=== PATIENT | female | born 1960 | race Caucasian/White ===

== ENCOUNTER 2024-09-11 18:40 | Emergency (ER) | payer OTHER ==
[2024-09-11 19:06] VITALS: BP 163/65; PULSE 99; RESP 20; TEMP 98; BMI 25.8
[2024-09-11] MEDS ORDERED: DIPHTH,PERTUSS(ACELL),TET 0.5 ML DISP.SYRIN IM ONE (20:26)
[2024-09-11] MEDS: DIPHTH,PERTUSS(ACELL),TET 0.5 ML DISP.SYRIN IM ONE (20:50)
[2024-09-11] MEDS ORDERED: ACETAMINOPHEN 325 MG TABLET (FP) ONE (21:10)
[2024-09-11 21:12] LABS: ABSOLUTE IMMATURE GRANULOCYTES 0.05 x10^3/uL (0.0-0.031); BASOPHILS # 0.03 x10^3/uL (0.01-0.08); EOSINOPHIL % 0.3 % (0.7-5.8); EOSINOPHILS # 0.03 x10^3/uL (0.04-0.36); HEMATOCRIT 32.9 % (34.1-44.9); HEMOGLOBIN 10.2 g/dL (11.2-15.7); MEAN CELL VOLUME 80.6 fl (79.4-94.8); MEAN PLT VOLUME 8.8 fl (9.4-12.3); MONOCYTE # 0.38 x10^3/uL (0.24-0.86); MONOCYTE % 3.7 % (4.7-12.5); PLATELET COUNT 413 x10^3/uL (182-369); RDW 14.3 % (12.4-16.4)
[2024-09-11] MEDS: ACETAMINOPHEN 325 MG TABLET (FP) PO ONE (21:15)
[2024-09-11 21:31] LABS: POTASSIUM 4.5 mmol/L (3.5-5.1)
[2024-09-11 21:33] LABS: ALBUMIN 4.2 g/dl (3.4-5.0); CALCIUM 10.3 mg/dL (8.5-10.1)
[2024-09-11 21:34] LABS: BLOOD UREA NITROGEN 29.8 mg/dL (7-18)
[2024-09-11 21:37] LABS: CREATININE 0.9 mg/dL (0.55-1.3)
[2024-09-11 21:38] LABS: BILIRUBIN,TOTAL 0.3 mg/dL (0.2-1); TOT PROT 8.1 g/dl (6.4-8.2)
[2024-09-11 22:28] LABS: HCV DIAGNOSTIC IN-HOUSE W/RFLX NON-REACTIVE (NONREACTIVE); HIV INTERPRETATION NEGATIVE (NEGATIVE)
== END 2024-09-11 22:17 | disposition home or self-care (01) ==
LOC: JER 18:40
PROC: 0HQ1XZZ Repair Face Skin, External Approach (ICD-10-PCS; principal; 2024-09-11)
PROC: 3E0234Z Introduction of Serum, Toxoid and Vaccine into Muscle, Percutaneous Approach (ICD-10-PCS; 2024-09-11)
DX: S01.81XA Laceration without foreign body of other part of head, initial encounter (principal); S80.02XA Contusion of left knee, initial encounter; R42 Dizziness and giddiness; R11.10 Vomiting, unspecified; Z23 Encounter for immunization; W01.198A Fall on same level from slipping, tripping and stumbling with subsequent striking against other object, initial encounter; Y99.0 Civilian activity done for income or pay
CPT/HCPCS: 12011-25; 36415; 70450-TC; 80053; 84484; 85025; 86803; 87389; 90471; 90715; 93005; 93010; 99285-25